=== PATIENT | male | born 1965 | race Asian ===

== ENCOUNTER 2022-08-07 20:02 | Emergency (ER) | payer MEDICAID ==
[~2022-08-07] VITALS: Ht 172.7 cm; Wt 68.0 kg
[2022-08-07 21:07] VITALS: BP_SYST 110
--- NOTE | 2022-08-07 21:14 | NUR ---
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
--- NOTE | 2022-08-07 21:30 | NUR ---
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 Patient denies taking medication prior to arrival. He told Dr. Mack that his vaccinations including TDAP are up to date. Patient is alert and oriented x4. Respiration even and unlabored. No shortness of breath. No c/o pain. Lac tray set up for Dr. Mack. Will continue to monitor.
[2022-08-07] MEDS ORDERED: LIDOCAINE 1% 10 MG/ML, 20 ML MDV ID ONE (21:45)
--- NOTE | 2022-08-07 21:46 | NUR ---
Dr. Mack came to [facility] [place].
--- NOTE | 2022-08-07 22:30 | NUR ---
Patient given written and verbal discharge instructions and verbalizes understanding. ER MD discussed with patient the results and treatment provided. Patient in stable condition. ID arm band removed. Patient educated on LACERATION management and to follow up with PMD. Pain Scale 0. Opportunity for questions provided and answered. Medication side effect fact sheet provided.
--- NOTE | 2022-08-07 23:00 | NUR ---
Patient given written and verbal discharge instructions and verbalizes understanding. ER MD discussed with patient the results and treatment provided. Patient in stable condition. ID arm band removed. Rx of meds given. Patient educated on pain management and to follow up with PMD. Pain Scale . Opportunity for questions provided and answered. Medication side effect fact sheet provided.
[2022-08-07 23:31] VITALS: BP_SYST 134
== END 2022-08-07 23:31 | disposition home or self-care (01) ==
LOC: SED 20:02
DX: S61.012A Laceration without foreign body of left thumb without damage to nail, initial encounter (principal); Z79.899 Other long term (current) drug therapy; W23.1XXA Caught, crushed, jammed, or pinched between stationary objects, initial encounter; Y93.89 Activity, other specified; Y92.89 Other specified places as the place of occurrence of the external cause; Y99.8 Other external cause status
CPT/HCPCS: 99283; 73130; 12002; J2001